=== PATIENT | female | born 1960 | race Caucasian/White ===

== ENCOUNTER 2016-09-05 10:31 | Day surgery (SDC) | payer BC ==
[~2016-09-05 10:31] MED LIST: Lactated Ringers 1,000 ML IV SCH
[2016-09-05] MEDS ORDERED: Lactated Ringers 1,000 ML IV SCH ×3 (10:45→14:15)
[2016-09-05] MEDS ORDERED: fentaNYL 100 MCG/2 ML SDV IVPUSH PRN (11:35)
[2016-09-05] MEDS ORDERED: Promethazine 25 MG/ML SDV IM PRN (11:35)
[2016-09-05] MEDS ORDERED: Ondansetron 4 MG/2 ML SDV IVPUSH PRN (11:35)
[2016-09-05] MEDS ORDERED: HYDROmorphone 2 MG/ML SDV IVPUSH PRN (11:35)
[2016-09-05] MEDS ORDERED: HYDROmorphone 2 MG/ML SDV IV PRN (11:35)
[2016-09-05] MEDS ORDERED: ceFAZolin 1 GM Vial IV ONE (12:05)
[2016-09-05] MEDS ORDERED: fentaNYL 100 MCG/2 ML SDV IV ONE (12:05)
[2016-09-05] MEDS ORDERED: Ketorolac 30 MG/ML SDV IVPUSH ONE (12:05)
[2016-09-05] MEDS ORDERED: Ondansetron 4 MG/2 ML SDV IVPUSH ONE (12:05)
[2016-09-05] MEDS ORDERED: Lactated Ringers 1,000 ML IV ONE (12:05)
[2016-09-05] MEDS ORDERED: HYDROmorphone 2 MG/ML SDV IV ONE (12:05)
[2016-09-05] MEDS ORDERED: Midazolam 1 MG/ML 2 ML SDV IV ONE (12:05)
[2016-09-05] MEDS ORDERED: Dexamethasone 4 MG/ML 5 ML MDV IVPUSH ONE (12:05)
[2016-09-05] MEDS ORDERED: Propofol 200 MG/20 ML SDV IV ONE (12:05)
[2016-09-05] MEDS ORDERED: Morphine 10 MG/ML Syringe ONE ×2 (12:06→12:30)
[2016-09-05] MEDS ORDERED: Bupivacaine 0.5%/EPINEPHrine 1:200,000 50 ML MDV INJECT ONE (12:30)
[2016-09-05] MEDS ORDERED: EPINEPHrine 1 MG/ML SDV ONE (13:01)
[2016-09-05] MEDS ORDERED: Acetaminophen/HYDROcodone 325-5 MG Tab PO PRN (14:01)
[2016-09-05 16:16] VITALS: BP 125/72
--- NOTE | 2016-09-05 16:55 | OR ---
DATE OF OPERATION: 09/05/2016 SURGEON: Raul Porter MD PREOPERATIVE DIAGNOSIS: Degenerative tear medial meniscus, left knee. POSTOPERATIVE DIAGNOSES: 1. Degenerative tear medial meniscus, left knee. 2. Chondromalacia patella, left knee. PROCEDURE PERFORMED: 1. Diagnostic arthroscopy, left knee. 2. Partial medial meniscectomy, left knee. 3. Joint debridement with trimming retropatellar surface for grade 3 chondromalacia. OPERATIVE NOTE: The patient was taken to the operating room, placed on the operating room table in the supine position. A general anesthetic was then administered. A tourniquet was then placed from the left thigh near the inguinal area. Left lower extremity was then elevated and the tourniquet inflated to 250 mmHg pressure. End of the table was then dropped to 90 degrees, and the leg positioned appropriately in the leg rivas. A sterile ChloraPrep was then performed from the inferior margin a leg rivas to the tip of the toes. Sterile draping procedure was then carried out. Four incisions were then made over the left knee; anterior superior, anterior superolateral, anterior inferomedial, and anterior inferolateral. The operative inflow cannula was inserted into the anterior spurring medial portal of the knee and the knee was distended approximately 100 mL of sterile normal saline. During the operative procedure, the inflow cannula was inserted into the anterior superior lateral portal, so the complete examination and evaluation of the suprapatellar pouch could be carried out. Examination of the medial meniscus revealed a complex tear at the confluence of the posterior and medial one thirds. This was trimmed back to a stable border. The edges were trimmed with a full radius synovator as well as the curved synovator. The Duckbill scissors were also utilized. Upon removal of the torn meniscus, so we then probed with a nerve hook and found no further tearing or instability to remain. No chondromalacia was noted. One small fiber cartilaginous piece was removed through the suction with the full radius meniscotome played. Examination intercondylar notch with anterior cruciate ligament to be intact and taut to probing, normal bulk and tensile strength. Large ligamentum mucosum was noted and was removed. Examination of lateral compartment revealed no evidence of meniscal tears or instability when probed and viewed from several different angles. No chondromalacia and no loose bodies. Examination of the suprapatellar pouch revealed significant hypertrophic synovitis, both superior and inferior to the patella. With the use of a full radius in the curved synovator as well, we debrided the areas extensively. The patella tracked well. No loose bodies were noted. Because of the extensive synovitis, the patient did have grade 3 chondromalacia involving approximately 60% of the patellar surface about a millimeter in depth. Patella was trimmed from several different angles with a curved synovator to smooth the area and prevent further jagged tearing. Once this was done, the knee was liberally irrigated, all instrumentation removed, sterile dressings applied, leg rivas removed, and tourniquet deflated. Prior to closure, we did inject Marcaine with morphine into the knee for the patient's pain control. Also, since there was moderate hyperemia in the synovial tissue that we excised, we gave the patient 2 g of Ancef IV as well. COMPLICATIONS: None. ESTIMATED BLOOD LOSS: Approximately 150 mL. /[id number] MARYLOU/ROHINI
== END 2016-09-05 15:52 | disposition home or self-care (01) ==
LOC: FB.SDS 10:31
PROVIDERS: ATTEND Orthopaedic Surgery
DX: M23.204 Derangement of unspecified medial meniscus due to old tear or injury, left knee (principal); M22.42 Chondromalacia patellae, left knee; J45.909 Unspecified asthma, uncomplicated; F33.42 Major depressive disorder, recurrent, in full remission; Z79.899 Other long term (current) drug therapy; Z98.890 Other specified postprocedural states
CPT/HCPCS: 29881; 81025; 93005; J0171; J0690; J1100; J1170; J1885; J2250; J2270; J2405; J2704; J3010; J7120

== ENCOUNTER 2020-10-06 07:18 | Day surgery (SDC) | payer BC ==
[~2020-10-06 07:18] MED LIST changes: +Sodium Chloride 0.9% 10 ML Syringe FLUSH PRN
[2020-10-06] MEDS ORDERED: Propofol 200 MG/20 ML SDV IV ONE (07:19)
[2020-10-06] MEDS ORDERED: Midazolam 1 MG/ML 2 ML SDV IV ONE (07:19)
--- NOTE | 2020-10-06 08:49 | PCM.HP.2 ---
H&P History of Present Illness - General Date of Service: 10/06/20 Admit Problem/Dx: Admission Diagnosis/Problem Admission Diagnosis/Problem Colonoscopy Source of Information: Patient, Old Records History Limitations: Reports: No Limitations - History of Present Illness Initial Comments - Free Text/Narative: Here for screening colonoscopy - Related Data Allergies/Adverse Reactions: Allergies Allergy/AdvReac Type Severity Reaction Status Date / Time No Known Allergies Allergy Verified 10/06/20 07:44 Home Medications: Home Meds Fluticasone Propionate [Flonase] 2 spray NASBOTH DAILY 09/02/16 [History] Hydrochlorothiazide 25 mg PO DAILY 09/02/16 [History] Multivitamin [Multivitamins] 1 each PO DAILY 09/02/16 [History] Naproxen [Naprosyn] 500 mg PO BIDMEALS 09/02/16 [History] Zolpidem Tartrate [Ambien] 5 mg PO BEDTIME PRN 09/02/16 [History] buPROPion HCL [Wellbutrin Xl] 150 mg PO DAILY 09/05/16 [History] Acetaminophen 500 mg PO DAILY PRN 10/05/20 [History] Cholecalciferol (Vitamin D3) [Vitamin D3] 2,000 unit PO DAILY 10/05/20 [History] Phentermine HCl [Adipex-P] 37.5 mg PO DAILY 10/05/20 [History] Topiramate [Topamax] 25 mg PO BEDTIME 10/05/20 [History] Past Medical History HEENT History: Reports: Allergic Rhinitis Cardiovascular History: Reports: High Cholesterol, Hypertension, Other (See Below) Other Cardiovascular History: EDEMA Respiratory History: Reports: Asthma Gastrointestinal History: Reports: Chronic Constipation Genitourinary History: Reports: None PULP BEATER History: Reports: None Musculoskeletal History: Reports: Arthritis, Osteoarthritis Neurological History: Reports: Neuropathy, Peripheral Psychiatric History: Reports: Depression Endocrine/Metabolic History: Reports: Obesity/BMI 30+, Osteopenia Hematologic History: Reports: None Immunologic History: Reports: None Oncologic (Cancer) History: Reports: None Dermatologic History: Reports: None - Past Surgical History Head Surgeries/Procedures: Reports: None HEENT Surgical History: Reports: Tonsillectomy Cardiovascular Surgical History: Reports: None Respiratory Surgical History: Reports: None GI Surgical History: Reports: Colonoscopy Female Surgical History: Reports: None Endocrine Surgical History: Reports: None Neurological Surgical History: Reports: None Musculoskeletal Surgical History: Reports: Arthroscopic Knee Other Musculoskeletal Surgeries/Procedures:: R knee arthroscopy ~7 years. L knee arthroscopy 09-05-16 Oncologic Surgical History: Reports: None Social & Family History - Tobacco Use Tobacco Use Status *Q: Former Tobacco User Years of Tobacco use: 20 - Caffeine Use Caffeine Use: Reports: Coffee, Soda, Tea - Recreational Drug Use Recreational Drug Use: No H&P Review of Systems - Review of Systems: Review Of Systems: Comprehensive ROS is negative, except as noted in HPI. Exam - Exam Exam: See Below - Vital Signs Vital Signs: Last Vital Signs Temp 98.2 F 10/06/20 07:38 Pulse 75 10/06/20 07:38 Resp 18 10/06/20 07:38 BP 139/52 L 10/06/20 07:38 Pulse Ox 97 10/06/20 07:38 Weight: 86.636 kg - Exam General: Alert, Oriented Lungs: Clear to Auscultation, Normal Respiratory Effort Cardiovascular: Regular Rate, Regular Rhythm GI/Abdominal Exam: Soft, Non-Tender Sepsis Event Note - Focused Exam Vital Signs: Vital Signs Temp Pulse Resp BP Pulse Ox 10/06/20 07:38 98.2 F 75 18 139/52 L 97 Problem List Initiated/Reviewed/Updated: Yes Orders Last 24hrs: Active Orders 24 hr Category Date Time Status Patient Status [ADT] Routine ADT 10/06/20 07:15 Active Patient to Empty Bladder [RC] ASDIRECTED Care 10/06/20 07:15 Active Verify Patient Consent Obtain [RC] ASDIRECTED Care 10/06/20 07:15 Active Nothing Per Oral Diet [DIET] Diet 10/06/20 Breakfast Ordered Lactated Ringers [Ringers, Lactated] 1,000 ml Med 10/06/20 07:15 Active IV ASDIRECTED Sodium Chloride 0.9% [Saline Flush] Med 10/06/20 07:15 Active 10 ml FLUSH ASDIRECTED PRN Peripheral IV Insertion Adult [OM.PC] Routine Oth 10/06/20 07:15 Ordered Resuscitation Status Routine Resus Stat 10/05/20 08:57 Ordered Medication Orders Lactated Ringer's (Ringers, Lactated) 1,000 mls @ 125 mls/hr IV ASDIRECTED JENY Last Admin: 08/24/21 08:03 Dose: 125 mls/hr Documented by: MARIA R Sodium Chloride (Sodium Chloride 0.9% 10 Ml Syringe) 10 ml FLUSH ASDIRECTED PRN PRN Reason: Keep Vein Open Assessment/Plan Comment:: Colon Screeing Ok to proceed, risks and complications reviewed, consent obtained
--- NOTE | 2020-10-06 09:15 | PCM.OPNOTE ---
- General Post-Op/Procedure Note Date of Surgery/Procedure: 10/06/20 Operative Procedure(s): Colonoscopy with polypectomy Findings: Desc polyp Pre Op Diagnosis: Colon Screening Post-Op Diagnosis: Same Anesthesia Technique: MAC Primary Surgeon: Carlos Ochoa Anesthesia Provider: Olivia Dickey Pathology: Desc Polyp Complications: None Condition: Good
[2020-10-06 09:38] VITALS: BP 123/71; PULSE 81
--- NOTE | 2020-10-06 12:13 | OR ---
DATE OF OPERATION: 10/06/2020 SURGEON: Carlos Ochoa MD PREOPERATIVE DIAGNOSIS: Colon screening. POSTOPERATIVE DIAGNOSIS: Colon polyp. PROCEDURE: Colonoscopy with polypectomy. ANESTHESIA: IV sedation. DESCRIPTION OF PROCEDURE: The patient was brought to the procedure room where she was placed on her left side and IV sedation administered. Digital rectal exam was performed which was normal. The colonoscope was inserted and advanced to the level of the cecum without difficulty. Cecal position was confirmed by identifying the appendiceal lumen and ileocecal valve. Prep was good and surfaces were well visualized. Upon withdrawing the scope, the ascending and transverse colon were normal. In the descending colon at approximately 60 cm was a 5 mm sessile polyp removed with a cautery snare and retrieved in the polyp trap. Sigmoid colon and rectum were normal. Retroflexion was normal. Air was removed and the scope withdrawn. The patient tolerated the procedure well and returned to Recovery in stable condition. The patient will be contacted with the pathology report when it returns. If the polyp is adenomatous, she should undergo a surveillance colonoscopy in 5 years. If polyp is hyperplastic, she can wait 10 years until her next screening colonoscopy. /[id number] MARIA G/ROHINI
== END 2020-10-06 10:08 | disposition home or self-care (01) ==
LOC: FB.SDS 07:18
PROVIDERS: ATTEND Surgery
DX: Z12.11 Encounter for screening for malignant neoplasm of colon (principal); D12.4 Benign neoplasm of descending colon; K63.89 Other specified diseases of intestine; E78.00 Pure hypercholesterolemia, unspecified; I10 Essential (primary) hypertension; J45.909 Unspecified asthma, uncomplicated; E78.2 Mixed hyperlipidemia; K21.9 Gastro-esophageal reflux disease without esophagitis; K59.00 Constipation, unspecified; E66.9 Obesity, unspecified; Z68.36 Body mass index [BMI] 36.0-36.9, adult; Z87.891 Personal history of nicotine dependence
CPT/HCPCS: 00812-QZ; 88305; J2250; J2704; J7120